=== PATIENT | male | born 1975 | race Caucasian/White ===

== ENCOUNTER 2020-01-31 17:53 | Observation (INO) | payer OTHER ==
[~2020-01-31] VITALS: Ht 193 cm; Wt 129.5 kg
[2020-01-31] MEDS ORDERED: FLOMAX 0.40.4 MG/CAP PO (19:51)
[2020-01-31] MEDS ORDERED: TYLENOL 325MG325 MG PO (19:52)
[2020-01-31] MEDS ORDERED: ADVIL200 MG PO (19:53)
[2020-01-31 19:58] LABS: HEMOGLOBIN 14.2 g/dl (13.5-18.0); MEAN CELL VOLUME 91 fl (80.0-100.0); MEAN CORPUSCULAR HEMOGLOBIN 31 pg (27.0-31.0); MEAN CORPUSCULAR HGB CONC 34 g/dl (33.0-37.0); MEAN PLATELET VOLUME 9.2 fl (7.4-10.4); PLATELET COUNT 302 K/mm3 (130-400); RED BLOOD COUNT 4.63 M/mm3 (4.20-5.60)
[2020-01-31 20:03] LABS: INR 1.1 (0.8-3.0)
[2020-01-31 20:08] LABS: ALBUMIN 3.6 gm/dL (3.5-5.0); CALCIUM 8.4 mg/dL (8.4-10.2); CREATININE, serum 1.02 (0.66-1.25); PHOSPHOROUS 3.1 mg/dL (2.5-4.5); POTASSIUM 4.6 mmol/L (3.4-5.0)
[2020-01-31 20:11] VITALS: BP 123/80; PULSE 98; TEMP 98.2
--- NOTE | 2020-01-31 20:24 | NUR ---
Pt. arrived to the floor with [facility] at 1935. Dr. Scott in to see pt. Addmission complete. Fluids started per orders to INT to lt. forearm. Vitals stable. Pt. consent signed for surgery. Med rec complete. Pt. to OR at 2019.
[2020-01-31 22:30] VITALS: BP 129/84; PULSE 93; TEMP 97.5
[2020-01-31 22:45] VITALS: BP 139/80; PULSE 93
[2020-01-31 23:00] VITALS: BP 121/74; PULSE 85
[2020-01-31 23:30] VITALS: BP 129/85; PULSE 87
[2020-02-01] VITALS (9 sets, daily range): BP systolic 114–143; BP diastolic 67–87; PULSE 71–98; TEMP 97.6–98.7
[2020-02-01 07:06] LABS: HEMATOCRIT 37.3 % (42.0-52.0); HEMOGLOBIN 12.5 g/dl (13.5-18.0); MEAN CELL VOLUME 93 fl (80.0-100.0); MEAN CORPUSCULAR HEMOGLOBIN 31 pg (27.0-31.0); MEAN CORPUSCULAR HGB CONC 34 g/dl (33.0-37.0); MEAN PLATELET VOLUME 10.1 fl (7.4-10.4); PLATELET COUNT 297 K/mm3 (130-400); RED BLOOD COUNT 4.03 M/mm3 (4.20-5.60); REDCELL DISTRIBUTION WIDTH-CV 15.3 % (11.5-14.5)
[2020-02-01 07:07] LABS: ALBUMIN 3.3 gm/dL (3.5-5.0); BILIRUBIN,TOTAL 0.5 mg/dL (0.0-1.0); CALCIUM 8.1 mg/dL (8.4-10.2); CREATININE, serum 0.99 (0.66-1.25); POTASSIUM 4.2 mmol/L (3.4-5.0); TOTAL PROTEIN 5.9 gm/dL (6.4-8.2)
[2020-02-01 07:48] LABS: BAND 12 % (0-10); LYMPHOCYTE 5 % (20.0-51.0); NEUTROPHILS 79 % (42.0-75.2); PLATELET ESTIMATE NORMAL (NORMAL)
--- NOTE | 2020-02-01 09:53 | NUR ---
Patient alert and oriented, answers questions appropriately. See assessment. Abdomen obese, soft. Bowel sounds hyperactive x4 quads. +Flatus. Lap sites to abdomen with edges well approximated to two sites. RUQ lap site with moderate amount of serosanguinous drainage noted. BRENNAN drain to umbilical incision compressed, smal amount of serosanguinous drainage noted. Patient c/o pain to abdomen continous. Post op exercises reviewed with patient. No other c/o at this time.
--- NOTE | 2020-02-01 10:16 | NUR ---
Dr Scott here to see patient.
--- NOTE | 2020-02-01 10:32 | NUR ---
Initial visit; Patient thanked Boat Canvas Installer for looking in on him, although he has no spiritual needs at this time.
[2020-02-01 14:34] LABS: HEMOGLOBIN 12.3 g/dl (13.5-18.0)
[2020-02-01 14:42] LABS: HEMATOCRIT 36.3 % (42.0-52.0)
--- NOTE | 2020-02-01 15:04 | NUR ---
Afternoon Babysitter met with patient to discuss discharge planning. Patient lives in [place] with his , Aurora (ph#[phone]) and their son, Teofilo who is 18[address] Helms for primary care and obtains medications from [facility] with no difficulties. Patient is independent with ADLS and does not use any DME. Patient does not have Advance Directives and was not interested in setting them up at this time. Patient will return home upon discharge and has transportation arrangements made. No needs identified at this time.
[2020-02-01] MEDS ORDERED: NEURONTIN100 MG/CAP PO (17:41)
--- NOTE | 2020-02-01 18:53 | NUR ---
Discharge instructions reviewed with patient.
--- NOTE | 2020-02-01 19:15 | NUR ---
Pt. escorted out
== END 2020-02-01 19:15 | disposition home or self-care (01) ==
LOC: SURG 17:53
PROVIDERS: ADMIT Surgery
DX: K66.1 Hemoperitoneum (principal); Z90.49 Acquired absence of other specified parts of digestive tract; N40.0 Benign prostatic hyperplasia without lower urinary tract symptoms; Z87.442 Personal history of urinary calculi; Z82.61 Family history of arthritis; J30.2 Other seasonal allergic rhinitis; Z83.3 Family history of diabetes mellitus
CPT/HCPCS: J0330; J0690; J0692; J1100; J1170; J2250; J2370; J2405; J2704; J3010; J7060; J7120

== ENCOUNTER 2020-10-24 11:58 | Day surgery (SDC) | payer OTHER ==
[2020-10-24] VITALS (9 sets, daily range): BP systolic 102–122; BP diastolic 64–88; PULSE 49–90; TEMP 97.7–98.1
[~2020-10-24] VITALS: Ht 193 cm; Wt 82.9 kg
[~2020-10-24 11:58] MED LIST: ADVIL200 MG PO; FLOMAX 0.40.4 MG/CAP PO; NEURONTIN100 MG/CAP PO; TYLENOL 325MG325 MG PO
[2020-10-24 13:37] LABS: CALCIUM 8.6 mg/dL (8.4-10.2); POTASSIUM 3.7 mmol/L (3.4-5.0)
[2020-10-24 13:53] LABS: CREATININE, serum 0.73 (0.66-1.25)
[2020-10-24] MEDS ORDERED: PROTONIX 40MG T40 MG PO (14:06)
[2020-10-24] MEDS ORDERED: DECADRON 4MG TAB4 MG PO (14:06)
[2020-10-24] MEDS ORDERED: ELIQUIS 5MG PO (14:07)
[2020-10-24] MEDS ORDERED: FLOMAX 0.40.4 MG/CAP PO (14:08)
[2020-10-24] MEDS ORDERED: CARAFATE 1GM1 G PO (14:09)
[2020-10-24] MEDS ORDERED: K-DUR20 MEQ PO (14:15)
[2020-10-24] MEDS ORDERED: ATIVAN 1MG T1 MG/TAB PO (14:16)
--- NOTE | 2020-10-24 14:16 | NUR ---
Is Technician met with patient who is having a j-tube placed today. Patient's , Aurora (ph#[phone]) is at bedside. Patient lives in [place] with his and sees Dr. Lili Helms for primary care. Patient uses a cane for ambulation and has a shower chair at home. Patient is agreeable to have DME supplies ordered through [facility]. JAMIL spoke with RNGeno and left DME order on patient's chart to be signed by surgeon. JAMIL discussed Home Health services with patient and Aurora who both advised they do not feel they need any HH services at this time. JAMIL faxed professor of physics order, nutrition assessment, facesheet, and H&P to [facility] and notified Amador at [facility] that patient will discharge tomorrow. Discharge Plan: Home
--- NOTE | 2020-10-24 21:00 | NUR ---
Patient resting in bed. No complaints of pain at this time. Post op vitals stable. Lap sites x3, edges well approximated, and gastric jejunostomy to abdomen. Took all meds by mouth, with the carafate crushed. Fluids infusing to port. No additional needs at this time.
[2020-10-25] VITALS (7 sets, daily range): BP systolic 112–134; BP diastolic 77–86; PULSE 56–68; TEMP 97–98.1
--- NOTE | 2020-10-25 06:03 | NUR ---
Patient requested pain pill. [place] administered. Patient got up to the bathroom and voided. Ambulated well with cane and standby assist. No additional needs at this time. Will report off to day shift.
--- NOTE | 2020-10-25 08:36 | NUR ---
PT RESTING IN BED DURING ASSESSMENTS. PO MEDS TAKEN CRUSHE. PT IS A/O X4, DENIES NEEDS AT THIS TIME. POTASSIUM PROTOCOLS INPLACE AND FOLLOWED. PATIENT TO START TUBE FEEDINGS TODAY PER DIETICIANS ORDERS.
--- NOTE | 2020-10-25 09:24 | NUR ---
JAMIL staffed with the patient's RN. The patient's attending has already been up to the floor today and did not sign the script for the enteral feedings. Her RN reports that he will be in surgery all day. JAMIL contacted Tequila at [facility] to inquire if they could take a written order. Tequila reports that they can go ahead and take that for now and will let SW know if they need anything else. JAMIL updated the patient's RN. A written order was completed. JAMIL faxed and emailed the order forms to Tequila at [facility]. JAMIL updated the patient. JAMIL attempted to contact and update the patient's , Aurora. The phone number we have on file for her is no longer active.
[2020-10-25 10:15] LABS: PHOSPHOROUS 4.4 mg/dL (2.5-4.5)
--- NOTE | 2020-10-25 11:36 | NUR ---
TUBE FEEDING IMPLEMENTED AT THIS TIME PER DIETARY ORDERS. PT TOLERATING WELL. AT BEDSIDE.
--- NOTE | 2020-10-25 11:55 | NUR ---
Dr. Crowley came up to the surgical unit and signed the script for the enteral feedings. JAMIL notified and emailed the script to Tequila at [facility]. Ondina, at [facility], reports that they have everything ready for the patient. JAMIL met with the patient and his and updated them. Him and his plan to apple picker the feedings from [facility]. The patient also inquired about a hospital bed. JAMIL informed that how they are private pay, but how they could rent the bed. The patient reports that it is out of their budget right now, but they will think about it. They had no other questions for SW at this time. No additional needs at this time.
--- NOTE | 2020-10-25 14:07 | NUR ---
First visit from the governor assembler hydraulic. No needs right now.
--- NOTE | 2020-10-25 14:55 | NUR ---
PT TOLERATING TUBE FEEDING WELL. DENIES PAIN. AT BEDSIDE.
[2020-10-26 02:50] VITALS: BP 123/78; PULSE 60; TEMP 97.6
--- NOTE | 2020-10-26 07:59 | NUR ---
PT RESTING IN BED, TOLERATING TUBE FEEDING WELL. TF RUNNING @25 MLS/HR. ASSESSMENTS WNL. PT READY TO DISCHARGE TO HOME.
[2020-10-26 08:00] VITALS: BP 116/82; PULSE 52; TEMP 97.5
[2020-10-26] MEDS ORDERED: NORCO 325 MG-51 TAB PO (10:40)
--- NOTE | 2020-10-26 11:52 | NUR ---
DISCHARGE INSTRUCTIONS REVIEWED WITH PT AND . QUESTIONS SOLICITED AND ANSWERED. PT LEFT FLOOR IN WHEEL CHAIR WITH STAFF AND .
--- NOTE | 2020-10-26 11:53 | NUR ---
PORT A CATH DEACCESSED AND HEPARINIZED PER PROTOCOLS. PT TOLERATED WELL.
== END 2020-10-26 11:55 | disposition home or self-care (01) ==
LOC: SDCO 11:58 → SURG 17:42 → SDCO 10-26 11:55
PROVIDERS: Surgery
DX: C15.9 Malignant neoplasm of esophagus, unspecified (principal); E43 Unspecified severe protein-calorie malnutrition; F41.9 Anxiety disorder, unspecified; K21.9 Gastro-esophageal reflux disease without esophagitis; Z79.01 Long term (current) use of anticoagulants; Z79.899 Other long term (current) drug therapy; Z86.718 Personal history of other venous thrombosis and embolism; Z90.89 Acquired absence of other organs; Z83.3 Family history of diabetes mellitus; Z80.9 Family history of malignant neoplasm, unspecified; Z82.49 Family history of ischemic heart disease and other diseases of the circulatory system
CPT/HCPCS: OP; J0690; J1100; J1170; J2405; J2704; J3010; J7120; J8540